=== PATIENT | male | born 1940 | race Caucasian/White ===

== ENCOUNTER 2016-09-24 15:34 | Inpatient (IN) | payer OTHER ==
--- NOTE | ~2016-09-24 | DS ---
Discharge Summary [facility] [address] [place]. [address] NAME: ALLA ESPARZA : 42 STATUS : DIS IN PAT#: [id number] AGE: 76 ADM/REG DATE : 09/24/16 MR#: [id number] REPORT SERV DATE: 10/03/16 DICTATED BY: ANOOP IBARRA DATE: 10/02/16 REPORT STATUS : Draft TRANSCRIBED BY: MODGera DATE: 10/02/16 ADMISSION DATE: 09/24/2016 DISCHARGE DATE: 10/02/2016 DISCHARGE DIAGNOSES: 1. Severe right lower extremity cellulitis with two superficial wounds on the leg that is slowly healing. 2. 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 3. Acute kidney injury, present on admission, resolved. 4. Chronic kidney disease, back at baseline with creatinine of 1.7. 5. History of congestive heart failure/ischemic cardiomyopathy with ejection fraction of 25% that has been compensated. 6. Bilateral lower extremity edema, resolved. 7. Left foot pain, possibly gout with elevated uric acid level. It was improved with colchicine. CONSULTANTS: 1. Nephrology. 2. Infectious Disease. 3. Vascular Surgery. HOSPITAL COURSE: This discharge summary covers services covered between 10/01/2016 through 10/02/2016. For details regarding the previous days of hospital stay, please refer to interim discharge summary by Dr. Pina. In summary, the patient was admitted with severe right lower extremity cellulitis that did not respond to outpatient therapy. The patient was admitted and initially started on Ancef which was later switched to cefepime after wound cultures came back positive for Serratia Pseudomonas and enterococcus. The patient has been on cefepime for five days and Dr. Dumas suggested discharging patient on p.o. Cipro. The patient also had duplex ultrasound study of the bilateral lower extremities for possible peripheral arterial disease, which was indeed positive. The patient was seen by Vascular Surgery who felt that the patient did not need any immediate surgical attention. The patient will simply be followed by Vascular Surgery as an outpatient. On the day of discharge, the patient was seen by Physical Therapy, and the patient did extremely well, ambulating the hallway. The patient is thus being discharged home with a Rollator walker for close outpatient followup. Total of 45 minutes spent in coordinating this patient's discharge today. JODY/MODL Anoop Ibarra MD Discharge Summary [address] [address] NAME: ALLA ESPARZA : 42 STATUS : DIS IN PAT#: [id number] AGE: 76 ADM/REG DATE : 09/24/16 MR#: [id number] REPORT SERV DATE: 10/03/16 DICTATED BY: ANOOP IBARRA DATE: 10/02/16 REPORT STATUS : Draft TRANSCRIBED BY: MODL DATE: 10/02/16 / [id number] CC: MD Alla Hinds M.D.
--- NOTE | ~2016-09-24 | IDS ---
Interim Discharge Summary [facility] [address] [facility] [place]. [address] NAME: ALLA ESPARZA : 42 STATUS : ADM IN PAT#: [id number] AGE: 76 ADM/REG DATE : 09/24/16 MR#: [id number] REPORT SERV DATE: 09/30/16 DICTATED BY: ALEX DOMINGUEZ DATE: 09/30/16 REPORT STATUS : Draft TRANSCRIBED BY: MODL DATE: 09/30/16 ADMISSION DATE: 09/24/2016 DISCHARGE DATE: INTERIM DISCHARGE SUMMARY. INFECTIOUS DISEASE: Dr. Massimo Dumas. NETWORK/TELECOM ENGINEER: Dr. Haider. Dates of service provided from 09/24/2016 to 09/30/2016. The patient's current medical problems are 1. Severe right lower extremity cellulitis with 2 superficial wounds on the leg with currently slowly improving. 2. Acute kidney injury present on admission, resolved. 3. Chronic kidney disease. Creatinine currently at the baseline. 4. History of congestive heart failure/ischemic cardiomyopathy/systolic congestive heart failure with ejection fraction 25% compensated. 5. Bilateral lower extremity edema resolved. 6. Left foot dorsal surface pain, possible gout with elevated uric acid level, improved with colchicine. 7. Possible peripheral arterial disease. Check bilateral arterial duplex ultrasound. CONSULTANTS ON THE CASE: Natural Sciences Manager, Dr. Haider and Infectious Disease, Dr. Dumas. HISTORY OF PRESENT ILLNESS: Briefly, this is a very pleasant 76-year-old male who was admitted by me as a direct transfer from Dr. Pichardo's office. He had severe right lower extremity cellulitis which did not respond to outpatient treatment as well as he had bilateral lower extremity edema in a significant amount as well as 2 superficial wounds on the right lower leg ache. For details, see history of present illness dictated by me on 09/24/2016. HOSPITAL COURSE: 1. Briefly, on admission the patient was in acute kidney injury and lucerne farmer was consulted especially in a situation when he has ischemic cardiomyopathy. His oral diuretics were on hold, and he was given intravenous diuretics. His bilateral lower extremity edema resolved and his kidney function came back to the baseline, today creatinine is 1.76. He was switched to torsemide 20 mg twice a day and lucerne farmer recommended the patient to continue torsemide on outpatient basis instead of his home diuretics as well as his lisinopril has been discontinued. His LISA inhibitor has been discontinued per lucerne farmer Dr. Haider. 2. Right lower extremity cellulitis with 2 superficial ulcers on the foot. Initially he was started on Ancef and then the wound culture grew polymicrobial bacteria which showed Serratia Pseudomonas and Enterococcus and Dr. Dumas switched this patient to cefepime. The patient responded to the intravenous antibiotics. Erythema has Interim Discharge Summary [address] [place]. [address] NAME: ALLA ESPARZA : 42 STATUS : ADM IN PAT#: [id number] AGE: 76 ADM/REG DATE : 09/24/16 MR#: [id number] REPORT SERV DATE: 09/30/16 DICTATED BY: ALEX DOMINGUEZ DATE: 09/30/16 REPORT STATUS : Draft TRANSCRIBED BY: SERGE DATE: 09/30/16 improved, but he still needs intravenous antibiotics for maybe 2 or [address] Dumas. He is managing his antibiotics and he will recommend when is the time to switch him to oral antibiotics. 3. Ischemic cardiomyopathy and history of coronary artery disease. He has been asymptomatic. 4. He developed also pain on the dorsal surface of the left foot yesterday but there was no any erythema. I suspect this is possibly gout. His uric acid level was checked yesterday, it was 11.5. I gave him one dose of colchicine yesterday according to his kidney function as well as I will give him one more dose today. It looks like it helped him. 5. Also his right leg pain has improved. There is a possibility of peripheral arterial disease. I ordered bilateral arterial duplex ultrasound on this patient. My partner will check results tomorrow; if any abnormality, they may need to ask vascular specialist to see him. Currently, the patient on Lipitor 40 mg a day; Coreg 25 p.o. b.i.d.; cefepime 1 g IV q.6 hours; vitamin D 1000 units daily; Benadryl 50 mg at bedtime; Colace 100 mg p.o. daily; Pepcid 20 mg b.i.d.; subcu heparin 5000 units q.8 hours; Demadex 20 mg p.o. b.i.d.; Aldactone 25 mg daily; vitamin B complex one tablet daily; and glucosamine chondroitin daily. MG/MODL Alex Dominguez M.D. / [id number] CC: Sydney Stover M.D. Rohit Gupta, M.D. Mark Anderson, M.D.
--- NOTE | ~2016-09-24 | CN ---
Consultation Report [facility] [address] [place]. [address] NAME: ALLA WEINBERG : 42 STATUS : ADM IN PAT#: [id number] AGE: 76 ADM/REG DATE : 09/24/16 MR#: [id number] REPORT SERV DATE: 09/25/16 DICTATED BY: LUCAS HAIDER DATE: 09/24/16 REPORT STATUS : Draft TRANSCRIBED BY: MODL DATE: 09/24/16 CONSULTATION DATE OF CONSULTATION: 09/24/2016 CONSULTING GROUP: [facility]. CHIEF COMPLAINT: Right lower extremity cellulitis and [id number] renal failure. HISTORY OF PRESENT ILLNESS: Mr. Weinberg is a 76-year-old, gentleman who was seen today at Dr. Pichardo's office and noted to have significant right lower extremity cellulitis, redness, and ulcerations that may have been progressing over a week. He required inpatient management for IV antibiotics and was transferred to [facility] directly on the hospitalist service. Dr. Pina asked me to see the patient for acute-on chronic renal failure. I reviewed the patient's electronic medical chart. It seems that back in 2007 to 2015, his baseline creatinine is anywhere between 1.0 and 1.5. He has never seen a professor of geography in the past. As recent as October 2015, his baseline creatinine is 1.2. Mr. Weinberg has an eccentric and odd affect and personality. He is a retired retailer. He is in some mild pain from the leg cellulitis. He understands his need for hospitalization and is appropriate historian. He is bed rest right now and waiting to have his ultrasound of lower extremities. PAST MEDICAL HISTORY: 1. Vitamin D deficiency. 2. Allergic rhinitis. 3. GERD. 4. Ischemic cardiomyopathy secondary to coronary artery disease. 5. Osteoarthritis. FAMILY HISTORY: Father is an alcoholic. SOCIAL HISTORY: He lives in apartment alone. Quit smoking in 2007. He denies any alcohol use. He has an eccentric personality. 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 REVIEW OF SYSTEMS: Positive cough, shortness of breath, painful right leg cellulitis, lower extremity edema. He denies fevers. All other review of systems also negative at this time. OBJECTIVE/PHYSICAL EXAMINATION: VITALS SIGNS: Temperature 97,4, blood pressure 119/56, pulse 66, respiration 18. His intake is 240. Output not recorded yet. GENERAL: He is loquacious personality in mild pain distress. EYES: Extraocular is intact. No conjunctivitis. Consultation Report [address] [place]. [address] NAME: ALLA WEINBERG : 42 STATUS : ADM IN [facility]#: [id number] AGE: 76 ADM/REG DATE : 09/24/16 MR#: [id number] REPORT SERV DATE: 09/25/16 DICTATED BY: LUCAS HAIDER DATE: 09/24/16 REPORT STATUS : Draft TRANSCRIBED BY: SERGE DATE: 09/24/16 ENT: Dry oropharynx. No facial droop. LYMPH: No supraclavicular cervical lymphadenopathy. SKIN: He has a red ulcerated right lower extremity cellulitis, tender and warm to touch. He has redness of complexion. HEART: S1, S2. Regular. Positive edema. LUNGS: Clear to auscultation anteriorly. Few crackles. ABDOMEN: Soft, distended decreased bowel sounds. EXTREMITIES AND PSYCH: Right lower extremity cellulitis alert orient x3. Good historian. Odd affect. Right wrist brace. LABS: Chest x-ray is pending. We are going to have a lower extremity duplex later this evening. Sodium 136, potassium 5.5, chloride 100, bicarb 29, BUN 71, creatinine 2.54, glucose 106, calcium 8.8. White count 8.8, hemoglobin 11.1, hematocrit 33.2, and platelets 133. ASSESSMENT: Mr. Weinberg is a 76-year-old gentleman, with acute right lower extremity cellulitis and need for IV antibiotics, [id number] renal failure, coronary artery disease, and osteoarthritis. 1. Renal. His creatinine is 2.5, baseline creatinine 1.2-1.6. PLAN: 1. He is okay for IV Ancef. 2. Check urinalysis spot urine urea creatinine protein. 3. Check a lower extremity duplex tonight. 4. LISA inhibitor, metolazone, spironolactone, a nd Lasix have been held for now. 5. The patient may require IV diuretics and/or IV fluids depending on his urine electrolytes. It is difficult to wrap legs due to the fact that he has moderate cellulitis on his right lower extremity. 6. Strict I's and O's. NEGRO/MODL Lucas Haider M.D. / [id number] CC: Sydney Stover M.D.
--- NOTE | ~2016-09-24 | CN ---
Consultation Report [facility] [address] [facility] [place]. [address] NAME: ALLA ESPARZA : 42 STATUS : ADM IN PAT#: [id number] AGE: 76 ADM/REG DATE : 09/24/16 MR#: [id number] REPORT SERV DATE: 09/25/16 DICTATED BY: SHADE JOHNSON DATE: 09/25/16 REPORT STATUS : Draft TRANSCRIBED BY: MODGera DATE: 09/25/16 INFECTIOUS DISEASE CONSULT DATE OF CONSULTATION: REASON FOR REFERRAL: Evaluation and treatment of infection of leg. HISTORY OF PRESENT ILLNESS: The patient is a 76-year-old male. He has a history of coronary artery disease, ischemic cardiomyopathy. He has had arrhythmias in the past including atrial fibrillation, and has a pacemaker. He has a distant history of smoking, and he has recent worsening swelling in his legs that seems to have occurred over the last probably six to eight months, but marked swelling in the last month. He developed redness, particularly on the right. There was no abrupt onset. His gradual warmth and redness are not associated with pain. There are some blisters on it, but initially no wounds or trauma. He was treated as an outpatient with cefadroxil, but has continued to have difficulty with swelling and has really done nothing on his own such as elevation or compression devices to get the swelling down. He was admitted on the 09/24/2016 and has been started on Ancef. He has no temperature. White blood cell count is normal. Blood cultures are taken and thus far those are negative. He denies any trauma or unusual environmental exposures with his leg. He is obese, has increasing difficulty getting around and keeping his leg elevated. PAST MEDICAL HISTORY: Otherwise unremarkable. MEDICATIONS: Cefadroxil before he came in , Ancef while he is here. ALLERGIES: HE HAS NO KNOWN ANTIMICROBIAL ALLERGIES. 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 He is still , but lives alone and does not want to have anything to do with his family. He stops smoking number of years ago and has no history of alcohol or substance abuse. FAMILY HISTORY: Noncontributory. PHYSICAL EXAMINATION: GENERAL: Nontoxic adult male, in no acute distress. Alert and oriented x3. VITAL SIGNS: Temperature here has been normal, currently 98.5 with a pulse of 76, respirations 12, blood pressure 105/51, no weight has been recorded. HEENT: Sclerae clear. No oral lesions. LUNGS: Clear. HEART: Regular rate and rhythm. ABDOMEN: Obese, soft, nontender. Positive bowel sounds. EXTREMITIES: Both lower extremities are markedly swollen consistent with venous stasis. The right is erythematous, but only slightly warm. There is some weeping of clear fluid, but no Consultation Report [address] [place]. [address] NAME: ALLA ESPARZA : 42 STATUS : ADM IN PAT#: [id number] AGE: 76 ADM/REG DATE : 09/24/16 MR#: [id number] REPORT SERV DATE: 09/25/16 DICTATED BY: SHADE JOHNSON DATE: 09/25/16 REPORT STATUS : Draft TRANSCRIBED BY: SERGE DATE: 09/25/16 distinct wound. No ulcerations at this point. LABORATORY DATA: White count 8.8, when he came in, 6.9 today with hematocrit 30.3, platelets 210. BUN and creatinine 71 and 2.31, it was 2.54 when he came in. IMPRESSION: Bilateral severe venous stasis in both lower extremities. The right, I feel does have mild infection but the primary problem here is actually he has edema, and I think infection is playing a limited role at best, if indeed infection is there, it is most likely strep. I do not see anything that would suggest atypical agents or staph at this point. RECOMMENDATIONS: 1. Ancef, I think is reasonable for now. Increase in 2 g q.12 hours. 2. The most important thing now to get this under control is to get the swelling down and strict bedrest is of extreme importance to do that. This has been explained to the patient and he understands that he needs to have keep the leg elevated in bed 23-1/2 out of every 24 hours. I will follow the patient with you. Once he is better, we will have to talk about some type of compression device that he would be able to get in and out of himself since he lives alone. I appreciate very much your consulting on this patient. FAHEEM Shade Johnson M.D. / [id number] CC: Sydney Stover M.D.
--- NOTE | ~2016-09-24 | HP ---
History And Physical [facility] [id number] [place]. [address] NAME: ALLA ESPARZA : 42 STATUS : ADM IN PAT#: [id number] AGE: 76 ADM/REG DATE : 09/24/16 MR#: [id number] REPORT SERV DATE: 09/24/16 DICTATED BY: ALEX DOMINGUEZ DATE: 09/24/16 REPORT STATUS : Draft TRANSCRIBED BY: MODL DATE: 09/24/16 DATE OF ADMISSION: 09/24/2016 HISTORY OF PRESENT ILLNESS: The patient is very 76-year-old man, who was transferred from Dr. Pichardo's office as a direct admission. The patient had diagnosis of cellulitis, which was diagnosed one month ago. He had a blister on his right lower extremity according to Dr. Pichardo, which was treated with Duricef for the last 10 days and there are also two ulcers on his right lower extremity, but the leg is still red and these two ulcers developed lately and the patient's both legs are swollen, but the right lower extremity is also erythematosus. The patient reported that lately he became swollen. He denies any chest pain. He said that on exertion he may have some shortness of breath. He denies any fever. No cough. No chest pain. No abdominal pain. REVIEW OF SYSTEMS: All 14 systems are reviewed and are negative except what was stated in history of present illness. PAST MEDICAL HISTORY: Past medical history was collected from the patient as well as from Dr. Pichardo. The patient has history of ischemic cardiomyopathy, his ejection fraction is less than 30%. He had a history of heart attack before. His microbiology lab technician is Dr. Solis. He had a history of pacemaker placement done by Dr. Abrams. Also history of atrial fibrillation in the past. According to records here questionable history of COPD, the patient quit smoking long time ago. He denies any history of diabetes. PAST SURGICAL HISTORY: Coronary artery bypass grafting done by Dr. Painter in the past as well as history of umbilical hernia surgery and a pacemaker placement. SOCIAL HISTORY: He has and three children, but he lives alone by himself. There is a remote history of smoking. No alcohol. No recreational drug use. FAMILY HISTORY: Mother had a history of congestive heart failure and heart problems as well as she used to use alcohol as well as the father had the same problems. ALLERGIES: NO KNOWN DRUG ALLERGIES. HOME MEDICATIONS: Lipitor 40 mg a day; vitamin D one tablet daily; carvedilol 25 p.o. b.i.d.; vitamin D3 of 1000 units daily; Benadryl 50 mg daily; Colace 100 mg daily; Pepcid 20 mg b.i.d.; Giana 180 at bedtime; Lasix 40 mg b.i.d.; glucosamine one tablet daily; lisinopril 10 mg a day; metolazone 2.5 Friday, Friday, Friday; multivitamin daily; senna one tablet at bedtime; spironolactone 25 mg daily; tramadol with acetaminophen one tablet p.o. q.6h p.r.n. for pain; Ambien 10 mg as needed for insomnia. PHYSICAL EXAMINATION: GENERAL: Obese male, not in acute distress, resting quietly. VITAL SIGNS: Blood pressure 119/56, oxygen saturation 97% on room air, respiratory rate 18, heart rate 66, temperature 97.4. History And Physical [address] [address] NAME: ALLA ESPARZA : 42 STATUS : ADM IN [facility]#: [id number] AGE: 76 ADM/REG DATE : 09/24/16 MR#: [id number] REPORT SERV DATE: 09/24/16 DICTATED BY: ALEX DOMINGUEZ DATE: 09/24/16 REPORT STATUS : Draft TRANSCRIBED BY: SERGE DATE: 09/24/16 HEENT: Head atraumatic, normocephalic. Conjunctivae clear. Pupils are equal and reactive to light and accommodation. Extraocular muscles are intact. NECK: Supple. Trachea is midline. No supraclavicular or cervical lymphadenopathy. LUNGS: Diminished breath sounds bilaterally. Decreased respiratory effort. CARDIOVASCULAR SYSTEM: Regular rate and rhythm. Point of maximal impulse not displaced. ABDOMEN: Soft, obese, nontender. Mildly distended. Positive normoactive bowel sounds. EXTREMITIES: No clubbing, cyanosis, 2+ edema. Also, there is erythema on the right lower extremity and there are two ulcers on the lower leg, one on the side of the leg and the other one on the posterior aspect of the lower leg, but they looks superficial. The temperature of the leg is not elevated. PSYCHIATRIC: Normal mood and affect. NEUROLOGIC: Awake, alert, and oriented to time, place, and person. Muscle strength 5/5 bilaterally on upper and lower extremities. LABORATORY RESULTS: Sodium 136, potassium 5.5, chloride 100, carbon dioxide 29, BUN 71, creatinine 2.54, blood sugar 106. White count 8.8, hemoglobin 11.1, hematocrit 33.2, MCV 100.9, and a platelet count 133. ASSESSMENT AND PLAN: This is a very 76-year-old male with a history of congestive heart failure, ischemic cardiomyopathy, history of coronary artery disease, chronic kidney disease, obesity presented with: 1. Right lower extremity cellulitis. 2. Bilateral lower extremity edema. 3. Acute kidney injury on chronic kidney disease. 4. Ischemic cardiomyopathy with ejection fraction less than 30%. 5. Mild hyperkalemia. We will admit the patient to telemetry bed for his acute kidney injury on chronic kidney disease. This is most likely prerenal azotemia. We will hold his diuretics and recheck his kidney function. 6. Bilateral lower extremity edema. I think this is combination of acute kidney injury with ischemic cardiomyopathy. I will ask ceramic artist to see this patient regarding recommendations of diuretics. 7. Right lower extremity cellulitis. We will check serum procalcitonin level as well as we will check blood cultures and wound cultures. We will consult wound care and after cultures will be done we will start the patient on cefazolin, it will be dosed according to creatinine level. 8. Mild hyperkalemia. We will hold his lisinopril and we will give him one dose of Kayexalate. In the same time, we will check his bilateral lower extremity ultrasound to rule out deep vein thrombosis on this patient and we will put him for now on DVT prophylaxis. He does not have shortness of breath and he has normal oxygenation on room air. We will monitor him closely. I will follow up on this patient starting tomorrow morning. History And Physical [address] [place]. [address] NAME: ALLA ESPARZA : 42 STATUS : ADM IN PAT#: [id number] AGE: 76 ADM/REG DATE : 09/24/16 MR#: [id number] REPORT SERV DATE: 09/24/16 DICTATED BY: ALEX DOMINGUEZ DATE: 09/24/16 REPORT STATUS : Draft TRANSCRIBED BY: MODL DATE: 09/24/16 MG/MODL Alex Dominguez M.D. / [id number] CC: Sydney Stover M.D.
[~2016-09-24 15:34] MED LIST: COREG12 PO; FISH-EPA1000 MG PO; GLUCCHONDR PO; L40 PO; LAM250 PO; MULTIPLE VIT PO; PEP20 PO; PRIN10 PO; SENTAB PO; SPIRO25 PO; VYTORIN 10/40 T1 TAB PO; [UNRECOGNIZED DRUG - REMARK] OR
[2016-09-24] MEDS ORDERED: LIPITOR40 PO (16:20)
[2016-09-24] MEDS ORDERED: SPIRO25 PO (16:20)
[2016-09-24] MEDS ORDERED: COREG25 PO (16:20)
[2016-09-24] MEDS ORDERED: PRIN10 PO (16:20)
[2016-09-24] MEDS ORDERED: ULTRACET PO (16:20)
[2016-09-24] MEDS ORDERED: BEN25 PO (16:21)
[2016-09-24] MEDS ORDERED: ZAROX2.5B PO (16:21)
[2016-09-24] MEDS ORDERED: L40 PO (16:21)
[2016-09-24 16:25] LABS: BASOPHILS 0.2 %; BASOPHILS ABSOLUTE 0.02 10/3/uL (0.0-0.16); EOSINOPHILS 0.3 %; EOSINOPHILS ABSOLUTE 0.03 10/3/uL (0.0-0.53); HEMATOCRIT 33.2 % (40.0-51.0); HEMOGLOBIN 11.1 g/dL (13.6-17.8); IMMATURE GRANULOCYTES 0.2 %; IMMATURE GRANULOCYTES ABSOLUTE 0.02 10/3/uL (0.0-0.11); LYMPHOCYTES 12.5 %; MANUAL DIFF NO %; MEAN CORPUS HGB CONC 33.4 g/dL (32.0-36.0); MEAN CORPUSCULAR HEMOGLOB 33.7 pg (26.0-34.0); MEAN CORPUSCULAR VOLUME 100.9 fL (80-100); MEAN PLATELET VOLUME 13.1 fL (9.2-13.0); MONOCYTES 5.9 %; MONOCYTES ABSOLUTE 0.52 10/3/uL (0.21-1.20); NEUTROPHILS 80.9 %; NEUTROPHILS ABSOLUTE 7.11 10/3/uL (2.02-8.40); PLATELET COUNT 133 10/3/uL (150-400); RBC DISTRIBUTION WIDTH 13.4 % (12.0-16.0); RED CELL COUNT 3.29 10/6/uL (4.7-6.1); WHITE BLOOD CELLS 8.8 10/3/uL (4.5-10.5)
[2016-09-24] MEDS ORDERED: PEP20 PO (16:25)
[2016-09-24] MEDS ORDERED: DSS PO (16:25)
[2016-09-24] MEDS ORDERED: SENTAB PO (16:26)
[2016-09-24] MEDS ORDERED: ALLEGRA180 PO (16:26)
[2016-09-24] MEDS ORDERED: SUPER B COMP PO (16:26)
[2016-09-24] MEDS ORDERED: THERGRANM PO (16:26)
[2016-09-24] MEDS ORDERED: VITAMIN D31000 UNIT PO (16:26)
[2016-09-24] MEDS ORDERED: OSTEO BI-FLEX1 EACH PO (16:26)
[2016-09-24] MEDS ORDERED: AMB10 PO (16:26)
[2016-09-24 16:35] LABS: CALCIUM, SERUM 8.8 MG/DL (8.5-10.4); CHLORIDE, SERUM 100 MMOL/L (96-112); CO2 (CARBON DIOXIDE) 29 MMOL/L (24-34); GFR AFRICAN AMERICAN 28 ML/MIN (>=60); GFR NON AFRICAN AMERICAN 24 ML/MIN (>=60); GLUCOSE, SERUM 106 MG/DL (60-99); SODIUM, SERUM 136 MMOL/L (135-148)
[2016-09-24 16:36] LABS: BUN (BLOOD UREA NITROGEN) 71 MG/DL (6-23); CREATININE 2.54 MG/DL (0.70-1.30); POTASSIUM, SERUM 5.5 MMOL/L (3.5-5.3)
[2016-09-24 19:15] LABS: TROPONIN I 0.03 NG/ML (<0.05)
[2016-09-24 20:20] LABS: WBC (NOT ORDERED) (RFLEX) 0 (0-5)
[2016-09-24 20:28] LABS: PROCALCITONIN 0.32 ng/mL (<0.5)
[2016-09-24 21:47] LABS: CREATININE, URINE 46.7 MG/DL
[2016-09-24 22:10] LABS: ASCORBIC ACID (UR NOT ORDER) NEG (NEG); BILIRUBIN, URINE NEGATIVE (NEG); KETONE, URINE NEGATIVE (NEG); LEUKOCYTE ESTERASE(NOT OR NEG (NEG)
[2016-09-25 05:53] LABS: BASOPHILS 0.3 %; BASOPHILS ABSOLUTE 0.02 10/3/uL (0.0-0.16); EOSINOPHILS 0.9 %; EOSINOPHILS ABSOLUTE 0.06 10/3/uL (0.0-0.53); HEMATOCRIT 30.3 % (40.0-51.0); HEMOGLOBIN 10.3 g/dL (13.6-17.8); IMMATURE GRANULOCYTES 0.3 %; IMMATURE GRANULOCYTES ABSOLUTE 0.02 10/3/uL (0.0-0.11); LYMPHOCYTES 9.2 %; LYMPHOCYTES ABSOLUTE 0.63 10/3/uL (0.67-4.30); MEAN CORPUSCULAR HEMOGLOB 34.6 pg (26.0-34.0); MEAN CORPUSCULAR VOLUME 101.7 fL (80-100); MEAN PLATELET VOLUME 12.5 fL (9.2-13.0); MONOCYTES 17.6 %; MONOCYTES ABSOLUTE 1.21 10/3/uL (0.21-1.20); NEUTROPHILS 71.7 %; NEUTROPHILS ABSOLUTE 4.94 10/3/uL (2.02-8.40); PLATELET COUNT 120 10/3/uL (150-400); RBC DISTRIBUTION WIDTH 13.4 % (12.0-16.0); RED CELL COUNT 2.98 10/6/uL (4.7-6.1); WHITE BLOOD CELLS 6.9 10/3/uL (4.5-10.5)
[2016-09-25 05:56] LABS: MANUAL DIFF NO %
[2016-09-25 06:17] LABS: BUN (BLOOD UREA NITROGEN) 71 MG/DL (6-23); CALCIUM, SERUM 8.2 MG/DL (8.5-10.4); CHLORIDE, SERUM 100 MMOL/L (96-112); CO2 (CARBON DIOXIDE) 27 MMOL/L (24-34); CREATININE 2.31 MG/DL (0.70-1.30); GFR AFRICAN AMERICAN 31 ML/MIN (>=60); GFR NON AFRICAN AMERICAN 27 ML/MIN (>=60); GLUCOSE, SERUM 112 MG/DL (60-99); POTASSIUM, SERUM 4.5 MMOL/L (3.5-5.3); SODIUM, SERUM 137 MMOL/L (135-148); TROPONIN I 0.03 NG/ML (<0.05)
[2016-09-25 14:27] LABS: T PROTEIN (ELECT)(NOT OR 5.8 G/DL (6.0-8.5)
[2016-09-26 05:34] LABS: BASOPHILS 0.3 %; BASOPHILS ABSOLUTE 0.02 10/3/uL (0.0-0.16); EOSINOPHILS 1.1 %; EOSINOPHILS ABSOLUTE 0.08 10/3/uL (0.0-0.53); HEMATOCRIT 30.9 % (40.0-51.0); HEMOGLOBIN 10.5 g/dL (13.6-17.8); IMMATURE GRANULOCYTES 0.3 %; IMMATURE GRANULOCYTES ABSOLUTE 0.02 10/3/uL (0.0-0.11); LYMPHOCYTES 10.3 %; LYMPHOCYTES ABSOLUTE 0.76 10/3/uL (0.67-4.30); MEAN CORPUSCULAR HEMOGLOB 34.3 pg (26.0-34.0); MEAN PLATELET VOLUME 12.2 fL (9.2-13.0); MONOCYTES 15.8 %; MONOCYTES ABSOLUTE 1.17 10/3/uL (0.21-1.20); NEUTROPHILS 72.2 %; NEUTROPHILS ABSOLUTE 5.35 10/3/uL (2.02-8.40); PLATELET COUNT 135 10/3/uL (150-400); RBC DISTRIBUTION WIDTH 13.3 % (12.0-16.0); RED CELL COUNT 3.06 10/6/uL (4.7-6.1); WHITE BLOOD CELLS 7.4 10/3/uL (4.5-10.5)
[2016-09-26 05:38] LABS: MANUAL DIFF NO %
[2016-09-26 05:53] LABS: CALCIUM, SERUM 8.4 MG/DL (8.5-10.4); CHLORIDE, SERUM 99 MMOL/L (96-112); CO2 (CARBON DIOXIDE) 27 MMOL/L (24-34); CREATININE 1.96 MG/DL (0.70-1.30); GFR AFRICAN AMERICAN 38 ML/MIN (>=60); GFR NON AFRICAN AMERICAN 33 ML/MIN (>=60); GLUCOSE, SERUM 95 MG/DL (60-99); POTASSIUM, SERUM 3.7 MMOL/L (3.5-5.3); SGOT(AST) 24 U/L (5-40); SGPT(ALT) 25 U/L (5-65); SODIUM, SERUM 137 MMOL/L (135-148); TOTAL BILIRUBIN 0.9 MG/DL (0-1.2); TOTAL PROTEIN 5.8 G/DL (6.0-8.5)
[2016-09-26 05:59] LABS: ALBUMIN 2.9 G/DL (3.5-5.0); ALKALINE PHOSPHATASE 117 U/L (45-117); BUN (BLOOD UREA NITROGEN) 66 MG/DL (6-23); GLOBULIN 2.9 G/DL (2.5-4.1)
[2016-09-26 10:21] LABS: A/G 1.34 RATIO (0.9-2.10); ALB RELATIVE % 57.3 % (60.0-89.0); ALBUMIN (ELECTRO) 3.32 GM/DL (3.2-5.5); ALPHA 1 (ELECTRO) 0.32 GM/DL (0.1-0.4); ALPHA 1 RELAT % (NOT ORD) 5.6 % (1.0-4.0); ALPHA 2 (ELECTRO) 0.75 GM/DL (0.5-1.10); BETA GLOBULIN (SPE) 0.69 GM/DL (0.60-1.30); BETA RELATIVE % 11.9 % (9.0-22.0); GAMMA GLOBULIN (SPE) 0.71 G/DL (0.70-1.60); GAMMA RELAT % 12.2 % (6.0-22.0)
[2016-09-27 09:02] LABS: BASOPHILS 0.1 %; BASOPHILS ABSOLUTE 0.01 10/3/uL (0.0-0.16); EOSINOPHILS 0.6 %; EOSINOPHILS ABSOLUTE 0.05 10/3/uL (0.0-0.53); HEMATOCRIT 32.2 % (40.0-51.0); IMMATURE GRANULOCYTES 0.2 %; IMMATURE GRANULOCYTES ABSOLUTE 0.02 10/3/uL (0.0-0.11); LYMPHOCYTES 13.9 %; LYMPHOCYTES ABSOLUTE 1.11 10/3/uL (0.67-4.30); MEAN CORPUS HGB CONC 34.2 g/dL (32.0-36.0); MEAN CORPUSCULAR HEMOGLOB 34.5 pg (26.0-34.0); MEAN CORPUSCULAR VOLUME 100.9 fL (80-100); MEAN PLATELET VOLUME 11.8 fL (9.2-13.0); MONOCYTES 6.6 %; MONOCYTES ABSOLUTE 0.53 10/3/uL (0.21-1.20); NEUTROPHILS 78.6 %; NEUTROPHILS ABSOLUTE 6.29 10/3/uL (2.02-8.40); PLATELET COUNT 165 10/3/uL (150-400); RBC DISTRIBUTION WIDTH 13.4 % (12.0-16.0); RED CELL COUNT 3.19 10/6/uL (4.7-6.1)
[2016-09-27 09:06] LABS: MANUAL DIFF NO %
[2016-09-27 09:13] LABS: ALBUMIN 2.9 G/DL (3.5-5.0); CALCIUM, SERUM 8.7 MG/DL (8.5-10.4); CHLORIDE, SERUM 98 MMOL/L (96-112); CO2 (CARBON DIOXIDE) 30 MMOL/L (24-34); CREATININE 1.88 MG/DL (0.70-1.30); GFR AFRICAN AMERICAN 40 ML/MIN (>=60); GFR NON AFRICAN AMERICAN 34 ML/MIN (>=60); PHOSPHORUS, SERUM 3.3 MG/DL (2.5-4.5); POTASSIUM, SERUM 3.7 MMOL/L (3.5-5.3); SODIUM, SERUM 141 MMOL/L (135-148)
[2016-09-27 09:14] LABS: BUN (BLOOD UREA NITROGEN) 58 MG/DL (6-23); GLUCOSE, SERUM 124 MG/DL (60-99)
[2016-09-28 07:27] LABS: BASOPHILS 0.1 %; BASOPHILS ABSOLUTE 0.01 10/3/uL (0.0-0.16); EOSINOPHILS 1.3 %; EOSINOPHILS ABSOLUTE 0.11 10/3/uL (0.0-0.53); HEMATOCRIT 32.4 % (40.0-51.0); HEMOGLOBIN 11.1 g/dL (13.6-17.8); IMMATURE GRANULOCYTES 0.2 %; IMMATURE GRANULOCYTES ABSOLUTE 0.02 10/3/uL (0.0-0.11); LYMPHOCYTES ABSOLUTE 0.79 10/3/uL (0.67-4.30); MEAN CORPUS HGB CONC 34.3 g/dL (32.0-36.0); MEAN CORPUSCULAR VOLUME 102.2 fL (80-100); MEAN PLATELET VOLUME 11.5 fL (9.2-13.0); MONOCYTES 13.5 %; MONOCYTES ABSOLUTE 1.18 10/3/uL (0.21-1.20); NEUTROPHILS 75.9 %; NEUTROPHILS ABSOLUTE 6.65 10/3/uL (2.02-8.40); PLATELET COUNT 159 10/3/uL (150-400); RBC DISTRIBUTION WIDTH 13.4 % (12.0-16.0); RED CELL COUNT 3.17 10/6/uL (4.7-6.1); WHITE BLOOD CELLS 8.8 10/3/uL (4.5-10.5)
[2016-09-28 07:28] LABS: MANUAL DIFF NO %
[2016-09-28 07:42] LABS: ALBUMIN 2.9 G/DL (3.5-5.0); CALCIUM, SERUM 8.5 MG/DL (8.5-10.4); CHLORIDE, SERUM 98 MMOL/L (96-112); CO2 (CARBON DIOXIDE) 31 MMOL/L (24-34); CREATININE 1.71 MG/DL (0.70-1.30); GFR AFRICAN AMERICAN 45 ML/MIN (>=60); GFR NON AFRICAN AMERICAN 39 ML/MIN (>=60); GLUCOSE, SERUM 108 MG/DL (60-99); PHOSPHORUS, SERUM 2.7 MG/DL (2.5-4.5); POTASSIUM, SERUM 4.1 MMOL/L (3.5-5.3); SODIUM, SERUM 140 MMOL/L (135-148)
[2016-09-28 07:45] LABS: BUN (BLOOD UREA NITROGEN) 53 MG/DL (6-23)
[2016-09-29 09:24] LABS: BASOPHILS 0.2 %; BASOPHILS ABSOLUTE 0.02 10/3/uL (0.0-0.16); EOSINOPHILS 1.2 %; EOSINOPHILS ABSOLUTE 0.13 10/3/uL (0.0-0.53); HEMATOCRIT 33.5 % (40.0-51.0); HEMOGLOBIN 11.1 g/dL (13.6-17.8); IMMATURE GRANULOCYTES 0.2 %; IMMATURE GRANULOCYTES ABSOLUTE 0.02 10/3/uL (0.0-0.11); LYMPHOCYTES 12.6 %; LYMPHOCYTES ABSOLUTE 1.33 10/3/uL (0.67-4.30); MANUAL DIFF NO %; MEAN CORPUS HGB CONC 33.1 g/dL (32.0-36.0); MEAN CORPUSCULAR HEMOGLOB 33.6 pg (26.0-34.0); MEAN CORPUSCULAR VOLUME 101.5 fL (80-100); MEAN PLATELET VOLUME 11.8 fL (9.2-13.0); MONOCYTES 4.3 %; MONOCYTES ABSOLUTE 0.45 10/3/uL (0.21-1.20); NEUTROPHILS 81.5 %; NEUTROPHILS ABSOLUTE 8.62 10/3/uL (2.02-8.40); PLATELET COUNT 180 10/3/uL (150-400); RBC DISTRIBUTION WIDTH 13.4 % (12.0-16.0); WHITE BLOOD CELLS 10.6 10/3/uL (4.5-10.5)
[2016-09-29 09:36] LABS: BUN (BLOOD UREA NITROGEN) 51 MG/DL (6-23); CALCIUM, SERUM 8.9 MG/DL (8.5-10.4); CHLORIDE, SERUM 97 MMOL/L (96-112); CO2 (CARBON DIOXIDE) 34 MMOL/L (24-34); CREATININE 1.66 MG/DL (0.70-1.30); GFR AFRICAN AMERICAN 46 ML/MIN (>=60); GFR NON AFRICAN AMERICAN 40 ML/MIN (>=60); GLUCOSE, SERUM 116 MG/DL (60-99); SODIUM, SERUM 140 MMOL/L (135-148)
[2016-09-29 15:03] LABS: FOLATE 74.9 NG/ML (>5.2)
[2016-09-30 06:34] LABS: BASOPHILS 0.2 %; BASOPHILS ABSOLUTE 0.02 10/3/uL (0.0-0.16); EOSINOPHILS 1.5 %; EOSINOPHILS ABSOLUTE 0.13 10/3/uL (0.0-0.53); HEMATOCRIT 34.8 % (40.0-51.0); HEMOGLOBIN 11.6 g/dL (13.6-17.8); IMMATURE GRANULOCYTES 0.2 %; IMMATURE GRANULOCYTES ABSOLUTE 0.02 10/3/uL (0.0-0.11); LYMPHOCYTES 12.7 %; LYMPHOCYTES ABSOLUTE 1.14 10/3/uL (0.67-4.30); MEAN CORPUS HGB CONC 33.3 g/dL (32.0-36.0); MEAN CORPUSCULAR HEMOGLOB 34.1 pg (26.0-34.0); MEAN CORPUSCULAR VOLUME 102.4 fL (80-100); MEAN PLATELET VOLUME 11.8 fL (9.2-13.0); MONOCYTES 7.9 %; MONOCYTES ABSOLUTE 0.71 10/3/uL (0.21-1.20); NEUTROPHILS 77.5 %; NEUTROPHILS ABSOLUTE 6.93 10/3/uL (2.02-8.40); PLATELET COUNT 168 10/3/uL (150-400); RBC DISTRIBUTION WIDTH 13.2 % (12.0-16.0)
[2016-09-30 06:36] LABS: MANUAL DIFF NO %
[2016-09-30 06:42] LABS: CALCIUM, SERUM 8.8 MG/DL (8.5-10.4); CHLORIDE, SERUM 93 MMOL/L (96-112); CO2 (CARBON DIOXIDE) 33 MMOL/L (24-34); CREATININE 1.76 MG/DL (0.70-1.30); GFR AFRICAN AMERICAN 43 ML/MIN (>=60); GFR NON AFRICAN AMERICAN 37 ML/MIN (>=60); GLUCOSE, SERUM 115 MG/DL (60-99); POTASSIUM, SERUM 4.1 MMOL/L (3.5-5.3); SODIUM, SERUM 138 MMOL/L (135-148)
[2016-09-30 06:43] LABS: BUN (BLOOD UREA NITROGEN) 55 MG/DL (6-23)
[2016-10-01 06:02] LABS: BASOPHILS 0.4 %; BASOPHILS ABSOLUTE 0.03 10/3/uL (0.0-0.16); EOSINOPHILS 1.5 %; EOSINOPHILS ABSOLUTE 0.13 10/3/uL (0.0-0.53); HEMATOCRIT 33.2 % (40.0-51.0); HEMOGLOBIN 11.3 g/dL (13.6-17.8); IMMATURE GRANULOCYTES 0.4 %; IMMATURE GRANULOCYTES ABSOLUTE 0.03 10/3/uL (0.0-0.11); LYMPHOCYTES 11.6 %; LYMPHOCYTES ABSOLUTE 0.98 10/3/uL (0.67-4.30); MANUAL DIFF NO %; MEAN CORPUSCULAR HEMOGLOB 34.2 pg (26.0-34.0); MEAN CORPUSCULAR VOLUME 100.6 fL (80-100); MEAN PLATELET VOLUME 11.9 fL (9.2-13.0); MONOCYTES 10.5 %; MONOCYTES ABSOLUTE 0.89 10/3/uL (0.21-1.20); NEUTROPHILS 75.6 %; NEUTROPHILS ABSOLUTE 6.39 10/3/uL (2.02-8.40); PLATELET COUNT 176 10/3/uL (150-400); RBC DISTRIBUTION WIDTH 12.9 % (12.0-16.0); WHITE BLOOD CELLS 8.5 10/3/uL (4.5-10.5)
[2016-10-01 06:13] LABS: CALCIUM, SERUM 8.8 MG/DL (8.5-10.4); CHLORIDE, SERUM 97 MMOL/L (96-112); CO2 (CARBON DIOXIDE) 31 MMOL/L (24-34); CREATININE 1.73 MG/DL (0.70-1.30); GFR AFRICAN AMERICAN 44 ML/MIN (>=60); GFR NON AFRICAN AMERICAN 38 ML/MIN (>=60); GLUCOSE, SERUM 120 MG/DL (60-99); POTASSIUM, SERUM 3.7 MMOL/L (3.5-5.3); SODIUM, SERUM 136 MMOL/L (135-148)
[2016-10-01 06:14] LABS: BUN (BLOOD UREA NITROGEN) 61 MG/DL (6-23)
[2016-10-02] MEDS ORDERED: CIP5 PO (15:58)
[2016-10-02] MEDS ORDERED: FLORASTOR250 MG PO (15:59)
[2016-12-14] MEDS ORDERED: L20 PO (09:43)
[2016-12-14] MEDS ORDERED: FISH-EPA1000 MG PO (09:44)
== END 2016-10-02 16:54 | disposition home health service (06) | DRG 603 ==
LOC: 4SO 15:34
PROVIDERS: Hospitalist; Internal Medicine Nephrology; Nurse Practitioner
DX: L03.115 Cellulitis of right lower limb (principal); N17.9 Acute kidney failure, unspecified; I50.22 Chronic systolic (congestive) heart failure; E11.22 Type 2 diabetes mellitus with diabetic chronic kidney disease; L97.811 Non-pressure chronic ulcer of other part of right lower leg limited to breakdown of skin; R60.0 Localized edema; N18.9 Chronic kidney disease, unspecified; E87.5 Hyperkalemia; I25.5 Ischemic cardiomyopathy; E11.622 Type 2 diabetes mellitus with other skin ulcer; K21.9 Gastro-esophageal reflux disease without esophagitis; I25.10 Atherosclerotic heart disease of native coronary artery without angina pectoris; E55.9 Vitamin D deficiency, unspecified; J30.9 Allergic rhinitis, unspecified; Z87.891 Personal history of nicotine dependence; M19.90 Unspecified osteoarthritis, unspecified site; Z95.0 Presence of cardiac pacemaker; I87.8 Other specified disorders of veins; B95.5 Unspecified streptococcus as the cause of diseases classified elsewhere; M10.9 Gout, unspecified; B96.5 Pseudomonas (aeruginosa) (mallei) (pseudomallei) as the cause of diseases classified elsewhere; B95.2 Enterococcus as the cause of diseases classified elsewhere; B96.89 Other specified bacterial agents as the cause of diseases classified elsewhere; I70.293 Other atherosclerosis of native arteries of extremities, bilateral legs; N18.3 Chronic kidney disease, stage 3 (moderate); J44.9 Chronic obstructive pulmonary disease, unspecified; K59.00 Constipation, unspecified; I27.2 Other secondary pulmonary hypertension
CPT/HCPCS: 36415; 71010; 73560-RT; 73610-RT; 73630-RT; 73700-RT; 80048; 80053; 80069; 81001; 82570; 82607; 82746; 83036; 83735; 84145; 84155; 84156; 84165; 84484; 84540; 84550; 85025; 85027; 87040; 87070; 87077; 87186; 87205; 93005; 93925; 93970; 97116-GP; 97162-GP; A9270-GY; J0690; J0692

== ENCOUNTER 2016-12-14 10:02 | Inpatient (IN) | payer OTHER ==
--- NOTE | ~2016-12-14 | OP ---
Record Of Operation [facility] [address] [place] [address] NAME: ALLA ESPARZA : 42 STATUS : ADM IN PAT#: [id number] AGE: 76 ADM/REG DATE : 12/14/16 MR#: [id number] REPORT SERV DATE: 12/17/16 DICTATED BY: KAYDEN JONES DATE: 12/17/16 REPORT STATUS : Draft TRANSCRIBED BY: MODL DATE: 12/17/16 DATE OF PROCEDURE: 12/17/2016 PULMONARY CRITICAL CARE PROCEDURE NOTE PROCEDURE: Insertion of a left femoral arterial line for hemodynamic monitoring and frequent blood sampling. During code blue efforts, the left groin was prepped and draped in the usual sterile fashion and a left femoral arterial line was inserted under direct ultrasound visualization in the longitudinal view using Seldinger technique and secured to the skin with suture material. There was satisfactory waveform on the monitor after being connected to the transducer and sterile Bioclusive dressing was applied. Please see separate dictations for additional details of the morning's events. JEANETTE/SERGE Kayden Jones MD / [id number] CC: Sydney Bragg M.D.
--- NOTE | ~2016-12-14 | CN ---
Consultation Report [facility] [address] [place]. [address] NAME: ALLA WEINBERG : 44 STATUS : ADM IN PAT#: [id number] AGE: 76 ADM/REG DATE : 12/14/16 MR#: [id number] REPORT SERV DATE: 12/17/16 DICTATED BY: SUSANNA JONES DATE: 12/17/16 REPORT STATUS : Draft TRANSCRIBED BY: MODL DATE: 12/17/16 PULMONARY CRITICAL CARE DOCUMENTATION AND CODE BLUE DOCUMENTATION DATE OF CONSULTATION: Code Blue was called on the patient, Alla Weinberg, on 12/17/2016, time 0908 hours, CCU bed 10. HISTORY OF PRESENT ILLNESS: Mr. Weinberg is a 76-year-old gentleman, who is admitted to Dr. Oquendo's Service. He has underlying ischemic cardiomyopathy and was being worked up for ventricular arrhythmias and possible bowel obstruction. He had a large volume aspiration event and Code Blue was fired. At 0908 hours, the patient was noted to be unresponsive and pulseless. He had a paced rhythm consistent with pulseless electrical activity, chest compressions and Ambu bagging were initiated. An epinephrine was administered 1 ampule at 0909 hours and forced pulse check done shortly thereafter. He was consistently pulseless with a paced rhythm on the monitor and he was resumed on ACLS protocol, calcium was given, and the patient was intubated. Please see separate procedure note. On subsequent pulse check, shortly thereafter, he remained pulseless and he underwent another round of ACLS including additional epinephrine on pulse check at 0918 hours. He was noted to have a faint pulse and a blood pressure cycled at 160/67 with a pulse of 64 on the monitor. He received a total of 4 amps of epinephrine, 2 amps of bicarbonate, and 1 amp of calcium chloride during his code event. Femoral arterial and venous lines were placed as well as an OG tube which had bright red blood emanating from it. He received a bolus of saline a total of approximately 1 L throughout his code. His initial ABG showed a pH of 7.07, 76, 82, 22, and 90% oxygen. His H and H were stable at 12.2 and 36, which were slightly up from his morning CBC, and he was placed on mechanical ventilation as well as Levophed and epinephrine infusions. Please see my separate dictation documenting critical care provided to Mr. Weinberg following code event throughout the day as well as separate procedure notes. JEANETTE/SERGE Susanna Jones MD / [id number] CC: Sydney Bragg M.D.
--- NOTE | ~2016-12-14 | DS ---
Discharge Summary [facility] [address] [place]. [address] NAME: ALLA ESPARZA : 44 STATUS : DIS IN PAT#: [id number] AGE: 76 ADM/REG DATE : 12/14/16 MR#: [id number] REPORT SERV DATE: 12/26/16 DICTATED BY: JOSE OQUENDO DATE: 12/25/16 REPORT STATUS : Draft TRANSCRIBED BY: SERGE DATE: 12/25/16 Data Collection from hospitalization DISCHARGE DIAGNOSES: 1. Pulseless electrical activity arrest. 2. AICD. 3. Coronary artery disease status post coronary artery bypass grafting. 4. Ischemic cardiomyopathy. 5. Chronic systolic heart failure. 6. History of hypercholesterolemia. 7. Manic-depressive disorder. 8. Former smoker. 9. Vitamin D deficiency. 10.Osteoarthritis. 11.Gastroesophageal reflux disease. 12.Stage 3 chronic kidney disease. 13.Remote history of myocardial infarction. CONSULTATIONS: Dr. Susanna Acharya and Dr. Ez Alejandra Jr. PROCEDURES PERFORMED: 1. Intubation, 12/17/2016. 2. Insertion of left femoral arterial line, 12/17/2016. 3. Insertion of left femoral triple-lumen catheter, 12/17/2016. 4. Renal ultrasound, 12/17/2016. DISPOSITION: [facility]. HOSPITAL COURSE: This is a 76-year-old man, who presented to the emergency room with syncope. He has a long history of ischemic cardiomyopathy and coronary artery disease. On the day prior to this admission, he was at a restaurant when he became dizzy and almost fainted. He sat for a while with the underwriting operations manager and was then escorted out to his car and drove home. That evening, he again had a syncopal episode and was very weak and dizzy. He crawled to his bed and called an ambulance. When they came, he declined to go with them and waited for the next day and then came to the emergency room. He was now admitted to the hospital for further evaluation and treatment. Upon admission, the patient had presented with ventricular tachycardia. It was felt that he would need to undergo an interrogation of his AICD for better understanding of the rhythm abnormality. We were going to maintain the electrolytes, O2 saturation, and followup his EKG. We would continue to follow for possible symptomatic ventricular tachycardia. The following day, he was seen by Dr. Ez Alejandra Jr, regarding elpkm-nm-merypyy renal failure. The patient was felt to have acute kidney injury with serum creatinine higher than at the time of dismissal in September. He has stage III chronic kidney disease of undetermined significance. He also has a history of ischemic cardiomyopathy secondary to coronary artery disease with an ejection fraction reported less than 30%. He appears to be on the same furosemide, lisinopril, and spironolactone regimen that he had been on prior to his September 2016 hospitalization. He appeared to be more edematous than at the time of his hospital Discharge Summary [place] [id number] [facility] [place]. [address] NAME: ALLA ESPARZA : 42 STATUS : DIS IN PAT#: [id number] AGE: 76 ADM/REG DATE : 12/14/16 MR#: [id number] REPORT SERV DATE: 12/26/16 DICTATED BY: JOSE OQUENDO DATE: 12/25/16 REPORT STATUS : Draft TRANSCRIBED BY: SERGE DATE: 12/25/16 dismissal in the middle of September. Loop diuretics were ordered and he agreed. He was mildly hyperkalemia. He did not think the patient would need any immediate replacement. Aldactone was currently being started the following day. He would also be started on three times a week metolazone. Prinivil was continued and we would assess his cardiovascular response and consider the etiology of AICD discharge. Atorvastatin was continued. Beta-michael and amiodarone were continued. On 12/16/2016, he was alert and cooperative. Creatinine was 3.95. Medical therapy continued. He had poor urine output. Potassium level was 5.1. On 12/17/2016, the patient was seen by Dr. Susanna Acharya. The patient had developed acute hypoxemic respiratory failure and was status post a large volume aspiration event and Code Blue. Earlier that morning, he had developed copious vomiting of coffee-ground material as well as some bright red blood. He had large volume aspiration event and cardiac arrest. ACLS protocol was performed. He was intubated for invasive mechanical ventilation, and central and arterial lines were placed. Post extubation, x-ray revealed large volume aspiration event with opacification of both lung davis, likely superimposed on some degree of volume overload. Over the course of the day, he became markedly hypotensive, presumably secondary to septic shock from inflammatory response due to aspiration pneumonitis. Vasopressors were being titrated; however, he continued to deteriorate. He had minimal urine output since the code event that morning. We were going to continue mechanical ventilation as well as titration of norepinephrine, epinephrine, and vasopressin to maintain MAP goals. We would discuss the potential of initiation of continuous renal replacement therapy. The patient's previous wishes did not include dialysis. If his family chooses to proceed with transition toward more comfort focused care, we would be happy to assist with transition to palliative care as well. A renal ultrasound had been performed. His condition continued to decline. The patient's family was adamant that the patient would not be interested in dialysis of any form. They requested comfort care and DNR code status. Pressors and ventilator support were weaned. The patient's condition continued to decline and later that afternoon, he was found without blood pressure, pulse, or respirations. He was pronounced at 1615 hours and released to the above-mentioned home. Information collected by: Sylwia Crowley I submit the above information as my discharge summary. TG/MODL Jose Oquendo M.D. / [id number] CC: Sydney Bragg M.D. Donald Franklin Jr, M.D.
--- NOTE | ~2016-12-14 | OP ---
Record Of Operation [facility] [address] [place]. [address] NAME: ALLA WEINBERG : 42 STATUS : ADM IN PAT#: [id number] AGE: 76 ADM/REG DATE : 12/14/16 MR#: [id number] REPORT SERV DATE: 12/17/16 DICTATED BY: KAYDEN JONES DATE: 12/17/16 REPORT STATUS : Draft TRANSCRIBED BY: MODL DATE: 12/17/16 DATE OF PROCEDURE: 12/17/2016 PULMONARY CRITICAL CARE MEDICINE INTUBATION PROCEDURE NOTE REASON FOR INTUBATION: Code blue, large volume aspiration event. DESCRIPTION OF PROCEDURE: During code blue efforts, Mr. Weinberg was positioned in the usual fashion and a #3 GlideScope was advanced into his mouth which was filled with blood and coffee-grounds emesis. An anchor was used to suction as much of the debris away as possible and a #8 ET tube was advanced into his trachea through the vocal cords under direct visualization and secured to the teeth at approximately 21 cm. He had positive breath sounds bilaterally following intubation which were coarse, positive color change on CO2 detector, air condensation in the ET tube with bagging, and absent breath sounds over the fundus of the stomach. An OG tube was inserted initially through the mouth which was unsuccessful and subsequently through the nose which was successful with positive gas insufflation audible over the fundus of the stomach. A followup chest x-ray showed NG tube tip in the tip of the GE junction and it was advanced approximately 15 cm and the ET tube tip approximately 6 cm above the michael, it was advanced 3 cm. Please see separate dictations for additional details. JEANETTE/SERGE Kayden Jones MD / [id number] CC: Jose Oquendo M.D. Alla Pichardo M.D.
--- NOTE | ~2016-12-14 | CN ---
Consultation Report [facility] [address] [place]. [address] NAME: ALLA ESPARZA : 44 STATUS : ADM IN PAT#: [id number] AGE: 76 ADM/REG DATE : 12/14/16 MR#: [id number] REPORT SERV DATE: 12/15/16 DICTATED BY: SYLVAIN LLANES JR DATE: 12/15/16 REPORT STATUS : Draft TRANSCRIBED BY: MODL DATE: 12/15/16 NEPHROLOGY CONSULTATION DATE OF CONSULTATION: 12/15/2016 REASON FOR CONSULTATION: Kxija-jo-jpcfftn renal failure. IMPRESSION: 1. Acute kidney injury, serum creatinine higher than at the time of dismissal in September. 2. Chronic kidney disease stage 3 of undetermined significance/precipitant. 3. Ischemic cardiomyopathy secondary to coronary artery disease, ejection fraction reported less than 30%. 4. ASCVD, coronary artery bypass grafting, seven vessels in 2003. 5. Cardiac dysrhythmias, AICD, with AICD discharge prior to admission. 6. Several episodes of near syncope prior to admission. 7. No exam features suggestive of volume depletion. 8. History of osteoarthritis, not on anti-inflammatory agents. 9. Vitamin D deficiency. 10.Gastroesophageal reflux disease. 11.Allergic rhinitis. 12.Recent episode of lower extremity cellulitis. RECOMMENDATIONS: He appears to be on the same furosemide, lisinopril, and spironolactone, regimen that he was on prior to his 09/2016 hospitalization. He appears to be more edematous than it is presumed he was at time of hospital dismissal in the middle of September. Dr. Oquendo has ordered loop diuretics, I concur. He is mildly hyperkalemic, I do not think he will need any immediate replacement. His Aldactone is currently being started on tomorrow, and he is ordered three time a week metolazone, though I do not see that on his home medications. Continue Prinivil, assess his cardiovascular response, and consider etiology of AICD discharge per Cardiology. Thank you for the consult. HISTORY: A gentleman with chronic kidney disease that is probably aggravated from his ischemic cardiomyopathy. However, he has been compensated and works at [employer] until recently. He has lower extremity edema that has not responded to current loop diuretics. He has had a couple of episodes of syncope or near syncope over the 48 hours prior to admission and apparently has some trouble with the AICD discharging in the days prior to admission. He has no chest pain or subjective palpitations, does not acknowledge orthopnea. He has been started on parental amiodarone in the hospital, he seems to be experiencing some nausea with dry heaves here in the hospital. He has no cough prior to admission, no hemoptysis. He does not acknowledge orthopnea, or PND, but he agrees that he has lower extremity edema. He has had no chest pain. Consultation Report [place] [id number] [place]. [address] NAME: ALLA ESPARZA : 42 STATUS : ADM IN [facility]#: [id number] AGE: 76 ADM/REG DATE : 12/14/16 MR#: [id number] REPORT SERV DATE: 12/15/16 DICTATED BY: SYLVAIN LLANES JR. DATE: 12/15/16 REPORT STATUS : Draft TRANSCRIBED BY: SERGE DATE: 12/15/16 OTHER PAST MEDICAL HISTORY: 1. ASCVD. 2. Ischemic cardiomyopathy. 3. Remote myocardial infarction. 4. Pacemaker. 5. AICD. 6. Questionable history of COPD. 7. Remote tobacco habituation. 8. History of no diabetes. SOCIAL HISTORY: and three children, but he lives by himself. Remote history of smoking. No alcohol. No recreational drug use. FAMILY HISTORY: Mother, congestive heart failure and other cardiovascular problems. Father with cardiovascular disease and alcohol use. ALLERGIES: NO KNOWN DRUG ALLERGIES. HOME MEDICATIONS: Identified as atorvastatin, B complex, carvedilol, cholecalciferol, diphenhydramine, docusate, famotidine, fexofenadine, furosemide, glucosamine, lisinopril, metolazone, multivitamins, omega-3 fatty acids, senna, spironolactone, tramadol p.r.n., zolpidem at bedtime for sleep. REVIEW OF SYSTEMS: Not otherwise reportable for head, neck, pulmonary, cardiac, GI, , musculoskeletal, neurological, integumentary, or psychiatric complaints. PHYSICAL EXAMINATION: GENERAL: Overweight white male, who is awake, alert, fluent, at a routed conversations. HEENT: Cranium is normocephalic. Pupils are equal. No scleral icterus. No conjunctival injection. Pupils are equal. Nose without discharge, no epistaxis. Oral mucous membranes are moist. Facial symmetry is observed. NECK: No neck vein distention. LUNGS: Clear to auscultation without increased work of breathing, adventitial sounds are not appreciated. HEART: PMI is laterally displaced. I do not hear a gallop or rub. Rhythm is currently irregular to auscultation, pacer spikes are noted. ABDOMEN: Obese, soft, nontender, without palpable visceromegaly. Liver edge is not distended. HJR is not observed. GENITALIA: Deferred. He does not have a Martinez. EXTREMITIES: With 1+ pitting edema, symmetrical distal pulses 1+. No nail bed cyanosis. NEUROLOGICAL: Cognition and speech are normal. Gait is not currently tested. Moves all extremities. DTRs are symmetrical, biceps and knee jerk. Speech is fluent. Cognition is good. INTEGUMENT: No observed or reported lesions. No petechiae, no rash. Turgor is good. Consultation Report [address] [place]. [address] NAME: ALLA ESPARZA : 44 STATUS : ADM IN [facility]#: [id number] AGE: 76 ADM/REG DATE : 12/14/16 MR#: [id number] REPORT SERV DATE: 12/15/16 DICTATED BY: SYLVAIN LLANES JR. DATE: 12/15/16 REPORT STATUS : Draft TRANSCRIBED BY: SERGE DATE: 12/15/16 Cyanosis is absent. PSYCHIATRIC: Affect is somewhat pressured. Interaction, cooperates well with examiner, however. LABORATORY DATA: When he entered the hospital on 09/24/2016 creatinine was 2.5, at discharge creatinine was 1.7, on admission 10/14/2016 the creatinine was 3.3, today 3.6. Potassium is 5, sodium is 132, calcium is 8.6, magnesium is 2.3. Bicarbonate around 24. Anion gap around 10 to 12. Transaminases not elevated. Troponin slightly elevated. TSH not recently done. UA without protein or hematuria. Chest x-ray, cardiomegaly, no gross pulmonary vascular congestion. Thank you, group members will follow with you. RINA/SERGE Sylvain Llanes Jr, M.D. / [id number] CC: Sydney Bragg M.D.
--- NOTE | ~2016-12-14 | CN ---
Consultation Report [facility] [address] [place]. [address] NAME: ALLA WEINBERG : 44 STATUS : ADM IN PAT#: [id number] AGE: 76 ADM/REG DATE : 12/14/16 MR#: [id number] REPORT SERV DATE: 12/17/16 DICTATED BY: SUSANNA JONES DATE: 12/17/16 REPORT STATUS : Draft TRANSCRIBED BY: MODL DATE: 12/17/16 PULMONARY CRITICAL CARE CONSULTATION DATE OF CONSULTATION: 12/17/2016 REASON FOR CONSULTATION: Acute hypoxemic respiratory failure, status post large volume aspiration event, and code blue. HISTORY OF PRESENT ILLNESS: Mr. Weinberg is a 76-year-old gentleman who is admitted to Dr. Oquendo's service for ischemic cardiomyopathy and ventricular tachycardia. He presented to the emergency department on 12/14/2016 after becoming dizzy at a restaurant and having near syncope. He was brought to the emergency department and found to be in ventricular arrhythmia. It sounds like he actually had a similar episode the previous day and called paramedics, however, declined to be transported to the hospital. He is admitted to the CCU, bed 10, and was also evaluated by Dr. Alejandra from Nephrology for acute kidney injury superimposed on to some degree of chronic kidney disease and was having some nausea and coffee-ground material from the NG tube, which was placed for suspected ileus. This morning he developed copious vomiting of coffee-ground material as well as some bright red blood, had large volume aspiration event, and had cardiac arrest. He underwent ACLS, please see my separate dictation note for details. He was intubated for invasive mechanical ventilation and central and arterial lines were placed. Please see my separate dictations of those procedures. His post intubation x-ray showed a large volume aspiration event with opacification of both lung davis likely superimposed on to some degree of volume overload. Over the course of the day, he has become markedly hypotensive presumably secondary to septic shock from inflammatory response due to aspiration pneumonitis. Vasopressors are being titrated, however, he continues to deteriorate. Of note, he has had minimal urine output since his code event this morning. PAST MEDICAL HISTORY: Includes ASCVD; ischemic cardiomyopathy; coronary artery disease with remote [place], status post pacemaker AICD placement; questionable history of COPD; remote tobacco abuse; vitamin D deficiency; osteoarthritis; GERD; allergic rhinitis; and recurrent lower extremity cellulitis. OTHER SURGICAL HISTORY: Includes AICD placement. SOCIAL HISTORY: He is living independently, has a and three children, who live elsewhere. Remote smoking. Denies alcohol or illicit drug use to previous examiners based on medical records. FAMILY HISTORY: Mother had coronary artery disease with ischemic cardiomyopathy/CHF. Father had coronary artery disease, as well as alcoholism. ALLERGIES: NONE KNOWN. Consultation Report [address] [place]. [address] NAME: ALLA WEINBERG : 42 STATUS : ADM IN PAT#: [id number] AGE: 76 ADM/REG DATE : 12/14/16 MR#: [id number] REPORT SERV DATE: 12/17/16 DICTATED BY: SUSANNA JONES DATE: 12/17/16 REPORT STATUS : Draft TRANSCRIBED BY: SERGE DATE: 12/17/16 HOME MEDICATIONS: Include atorvastatin, B vitamin Complex, Coreg, cholecalciferol, Benadryl, docusate, famotidine, fexofenadine, furosemide, glucosamine, lisinopril, metolazone, multivitamins, omega-3 fatty acid, senna, spironolactone, tramadol on an as needed basis, and Ambien for insomnia. REVIEW OF SYSTEMS: Limited secondary to acuity, see HPI. ADVANCE DIRECTIVES/LIVING SHAH: None. His children are serving as his medical decision maker as well as a sister. PHYSICAL EXAMINATION: GENERAL: He is tachycardic, hypotensive on multiple pressors. Not over breathing the ventilator and afebrile. He is a male, who is overweight, intubated, and sedated. HEENT: Head is atraumatic and normocephalic. Pupils are sluggishly reactive to light. Extraocular movements unable to assess due to acuity. Ears, nose, and mouth are unremarkable. His oral endotracheal tube and orogastric tube in place with some bright red blood about the mouth. NECK: Supple with redundant soft tissue. CHEST: With coarse breath sounds bilaterally, which are symmetric. HEART: S1, S2. Irregularly irregular with pacer spikes noted on the telemetry strip. He has a healed incision from previous AICD insertion. ABDOMEN: Obese, somewhat distended with some tympany to percussion over the area of the stomach. : Martinez catheter is indwelling and draining a very dark urine approximately 50 mL at 7 a.m. EXTREMITIES: No clubbing or cyanosis, but trace pitting edema. NEUROLOGIC: Exam is very limited due to intubation and sedation. He does respond to painful stimulus. PSYCHIATRIC: Unable to assess. LABORATORY AND DIAGNOSTIC STUDIES: Personal review of diagnostic workup completed today includes renal function panel, sodium 127, potassium 5.2, chloride is 94, CO2 is 26, BUN is 84, creatinine 4.85, glucose 138, calcium 8.2, phosphorus 6.8, albumin 3.3. BNP level is 833.7. CBC shows leukocytosis 16.2 with hemoglobin and hematocrit of 11.0 and 32.9 with some macrocytosis and mild hypochromia, RDW is mildly elevated at 15.9, platelet count is 109. PTT is greater than 150 on a heparin drip. An ABG post code showed pH 7.07, PaCO2 of 68, PaO2 of 117, base excess -11.4, bicarb of 19.9 (calculated value), and a O2 saturation 96% on 100% FiO2. Chest x-ray shows diffuse bilateral interstitial opacities with high- riding endotracheal tube and orogastric tube, which terminates at the distal esophagus/GE junction. His last echocardiogram was performed in 03/2016 and shows severely decreased LV systolic function with a calculated EF around 26% with dilated left-sided structures, moderate TR, RV, end-systolic pressure consistent with moderate pulmonary hypertension, aortic sclerosis without stenosis, and a dilated right atrium. Consultation Report [address] [place]. [address] NAME: ALLA WEINBERG : 44 STATUS : ADM IN [facility]#: [id number] AGE: 76 ADM/REG DATE : 12/14/16 MR#: [id number] REPORT SERV DATE: 12/17/16 DICTATED BY: SUSANNA JONES DATE: 12/17/16 REPORT STATUS : Draft TRANSCRIBED BY: MODGera DATE: 12/17/16 IMPRESSION: 1. Acute hypoxemic respiratory failure in the setting of large volume aspiration event, status post code blue event this morning. 2. Severe ischemic cardiomyopathy, status post pacer AICD insertion with ventricular arrhythmia precipitating hospitalization. 3. Acute kidney injury superimposed on to chronic kidney disease, stage 3, now oliguric with hyperphosphatemia and mild hyperkalemia. 4. Large volume aspiration event, as described above. 5. Suspected ileus versus small-bowel obstruction with abdominal distention. 6. Septic shock likely with cardiogenic shock component as well. 7. Profound metabolic acidosis. 8. Additional past medical history as described above. PLAN: We will continue mechanical ventilation as well as titration of norepinephrine, epinephrine, and vasopressin to maintain MAP goals. Will discuss potential initiation of continuous renal replacement therapy with Dr. Smith as well as patient's family, who evidently are aware of the patient's previous wishes, which did not include dialysis. If they choose to proceed with transition toward a more comfort focused care, we will be happy to assist with transition to palliative care as well. I did discuss this case with Dr. Oquendo from Cardiology as well as Dr. Smith from Nephrology as well as the patient's bedside nurse Shanae Cox and the patient's son and sister who are at the bedside. Approximately 61 minutes of critical care time was expended throughout the day on Mr. Weinberg's care. Please see my additional dictations for code blue documentation, intubation note, left femoral central line insertion note, and left femoral arterial line insertion note Thank you for the consultation. JEANETTE/SERGE Susanna Jones MD / [id number] CC: Jose Oquendo M.D. Alla Pichardo M.D.
--- NOTE | ~2016-12-14 | HP ---
History And Physical [id number] [place]. [address] NAME: ALLA WEINBERG : 44 STATUS : ADM IN [facility]#: [id number] AGE: 76 ADM/REG DATE : 12/14/16 MR#: [id number] REPORT SERV DATE: 12/14/16 DICTATED BY: JOSE OQUENDO DATE: 12/14/16 REPORT STATUS : Draft TRANSCRIBED BY: SEREG DATE: 12/14/16 DATE OF ADMISSION: 12/14/2016 REASON FOR ADMISSION: Mr. Alla Weinberg enters through the emergency room with syncope. CVD PHYSICIAN: Syed Solis M.D. HISTORY OF PRESENT ILLNESS: Mr. Alla Weinberg has long history of ischemic cardiomyopathy and coronary artery disease. Yesterday, he was at restaurant when he became dizzy and almost fainted. He sat for a while with the school business manager and then was escorted out to his car and drove home. That evening, he again had another syncopal episode and was very weak, dizzy. He crawled to his bed and called the ambulance. When they came, he declined to go with them and waited for the next day and came to the emergency room and is now admitted. REVIEW OF SYSTEMS: It is difficult to have him focused. I do not get any history of chest pain or chest discomfort. No discharges from the AICD are suggested. No fever or chills. Rest is undetermined. PAST MEDICAL HISTORY: 1. Status post coronary bypass grafting, 04/23. 2. Chronic systolic heart failure with ejection fraction of 25% on echocardiogram, 10/01. 3. History of hypercholesterolemia, on high-dose atorvastatin. 4. Status post AICD placement by Dr. Abrams. 5. Manic-depressive illness. SOCIAL HISTORY: He is a former smoker. He is moderately active. FAMILY HISTORY: Positive for heart disease in both mother and father. PHYSICAL EXAMINATION: VITAL SIGNS: Blood pressure is 110/70, pulse is 86. GENERAL: Currently, he is quite active and quite talkative. He is in no distress. RESPIRATORY: The lung expands symmetrically. No rales or wheezes are heard. CARDIAC: Precordium is quiet. S1 and S2 are normal. No rub is heard. ABDOMEN: Soft with positive bowel sounds. EXTREMITIES: Demonstrate no clubbing, cyanosis, or edema. There is noted to be some induration there. No increased temperature is noted. LABORATORY EVALUATION: Currently pending. ASSESSMENT: At this time, presents with ventricular tachycardia. We will ask for interrogation of the AICD for better understanding of the rhythm abnormality. I am maintaining electrolytes, O2 sat and follow up EKG. We will continue to follow for possible symptomatic ventricular tachycardia. History And Physical [address] [address] NAME: ALLA WEINBERG : 44 STATUS : ADM IN PAT#: [id number] AGE: 76 ADM/REG DATE : 12/14/16 MR#: [id number] REPORT SERV DATE: 12/14/16 DICTATED BY: JOSE OQUENDO DATE: 12/14/16 REPORT STATUS : Draft TRANSCRIBED BY: SERGE DATE: 12/14/16 ROSIBEL/SERGE Jose Oquendo M.D. / [id number] CC: Sydney Bragg M.D.
--- NOTE | ~2016-12-14 | OP ---
Record Of Operation [facility] [address] [place]. [address] NAME: ALLA WEINBERG : 44 STATUS : ADM IN PAT#: [id number] AGE: 76 ADM/REG DATE : 12/14/16 MR#: [id number] REPORT SERV DATE: 12/17/16 DICTATED BY: KAYDEN JONES DATE: 12/17/16 REPORT STATUS : Draft TRANSCRIBED BY: MODL DATE: 12/17/16 DATE OF PROCEDURE: PULMONARY CRITICAL CARE PROCEDURE NOTE PROCEDURE: Insertion of a left femoral triple-lumen catheter DESCRIPTION OF PROCEDURE: During code blue efforts Mr. Weinberg's left groin was prepped and draped in usual sterile fashion and a finder needle was advanced into the vein under direct ultrasound visualization, and the left femoral vein was cannulated using Seldinger technique with sequential dilation and passage of a 20 cm Arrow Blue triple-lumen catheter to a depth of approximately 19 cm and secured to the skin with suture material. There was positive blood return in all ports and they were flushed with sterile saline. Sterile Bioclusive dressing was applied following the procedure. Maximal sterile barriers including cap, gown, gloves, face shield, and drape were used. ESTIMATED BLOOD LOSS: Less than 1 mL. IMMEDIATE COMPLICATIONS: None. JEANETTE/SERGE Kayden Jones MD / [id number] CC: Sydney Bragg M.D.
[2016-12-14 08:03] LABS: BASOPHILS 0.3 %; BASOPHILS ABSOLUTE 0.03 10/3/uL (0.0-0.16); EOSINOPHILS 0.3 %; EOSINOPHILS ABSOLUTE 0.03 10/3/uL (0.0-0.53); HEMATOCRIT 32.6 % (40.0-51.0); HEMOGLOBIN 10.7 g/dL (13.6-17.8); IMMATURE GRANULOCYTES 0.2 %; IMMATURE GRANULOCYTES ABSOLUTE 0.02 10/3/uL (0.0-0.11); LYMPHOCYTES 11.1 %; LYMPHOCYTES ABSOLUTE 0.99 10/3/uL (0.67-4.30); MEAN CORPUS HGB CONC 32.8 g/dL (32.0-36.0); MEAN CORPUSCULAR HEMOGLOB 33.1 pg (26.0-34.0); MEAN CORPUSCULAR VOLUME 100.9 fL (80-100); MEAN PLATELET VOLUME 13.9 fL (9.2-13.0); MONOCYTES 9.9 %; MONOCYTES ABSOLUTE 0.88 10/3/uL (0.21-1.20); NEUTROPHILS 78.2 %; NEUTROPHILS ABSOLUTE 6.95 10/3/uL (2.02-8.40); RED CELL COUNT 3.23 10/6/uL (4.7-6.1); WHITE BLOOD CELLS 8.9 10/3/uL (4.5-10.5)
[2016-12-14 08:05] LABS: MANUAL DIFF NO %; PLATELET COUNT 95 10/3/uL (150-400); RBC DISTRIBUTION WIDTH 15.8 % (12.0-16.0)
[2016-12-14 08:24] LABS: A/G RATIO 1.3 (0.7-1.9); ALBUMIN 3.6 G/DL (3.5-5.0); ALKALINE PHOSPHATASE 119 U/L (45-117); BUN (BLOOD UREA NITROGEN) 59 MG/DL (6-23); CALCIUM, SERUM 8.6 MG/DL (8.5-10.4); CHLORIDE, SERUM 102 MMOL/L (96-112); CO2 (CARBON DIOXIDE) 24 MMOL/L (24-34); GLOBULIN 2.8 G/DL (2.5-4.1); SGOT(AST) 36 U/L (5-40); SGPT(ALT) 25 U/L (5-65); SODIUM, SERUM 135 MMOL/L (135-148); TOTAL PROTEIN 6.4 G/DL (6.0-8.5)
[2016-12-14 08:25] LABS: INTERNATIONAL NORMAL RATI 1.6 UNITS (-)
[2016-12-14 08:29] LABS: PROTIME (NOT ORD) 19.2 SEC (12.0-14.5)
[2016-12-14 08:34] LABS: CREATININE 3.32 MG/DL (0.70-1.30); GFR AFRICAN AMERICAN 20 ML/MIN (>=60); GFR NON AFRICAN AMERICAN 17 ML/MIN (>=60); GLUCOSE, SERUM 139 MG/DL (60-99); TOTAL BILIRUBIN 1.8 MG/DL (0-1.2)
[2016-12-14 08:35] LABS: TROPONIN I 3.52 NG/ML (<0.05)
[~2016-12-14 10:02] MED LIST changes: +ALLEGRA180 PO; +AMB10 PO; +BEN25 PO; +CIP5 PO; +COREG25 PO; +DSS PO; +FLORASTOR250 MG PO; +L20 PO; +LIPITOR40 PO; +OSTEO BI-FLEX1 EACH PO; +SUPER B COMP PO; +THERGRANM PO; +ULTRACET PO; +VITAMIN D31000 UNIT PO; +ZAROX2.5B PO
[2016-12-14 22:12] LABS: PHOSPHORUS, SERUM 4.7 MG/DL (2.5-4.5)
[2016-12-15 04:01] LABS: BASOPHILS 0.3 %; BASOPHILS ABSOLUTE 0.03 10/3/uL (0.0-0.16); EOSINOPHILS 0.2 %; EOSINOPHILS ABSOLUTE 0.02 10/3/uL (0.0-0.53); HEMATOCRIT 33.8 % (40.0-51.0); HEMOGLOBIN 11.2 g/dL (13.6-17.8); IMMATURE GRANULOCYTES 0.6 %; IMMATURE GRANULOCYTES ABSOLUTE 0.06 10/3/uL (0.0-0.11); LYMPHOCYTES 9.1 %; LYMPHOCYTES ABSOLUTE 0.98 10/3/uL (0.67-4.30); MEAN CORPUS HGB CONC 33.1 g/dL (32.0-36.0); MEAN CORPUSCULAR VOLUME 102.7 fL (80-100); MEAN PLATELET VOLUME 14.1 fL (9.2-13.0); MONOCYTES 9.3 %; NEUTROPHILS 80.5 %; NEUTROPHILS ABSOLUTE 8.65 10/3/uL (2.02-8.40); NUCLEATED RED BLOOD CELLS 0.6 /100WBC (0-0); PLATELET COUNT 99 10/3/uL (150-400); RED CELL COUNT 3.29 10/6/uL (4.7-6.1); WHITE BLOOD CELLS 10.7 10/3/uL (4.5-10.5)
[2016-12-15 04:06] LABS: MANUAL DIFF NO %
[2016-12-15 04:17] LABS: INTERNATIONAL NORMAL RATI 1.8 UNITS (-); PROTIME (NOT ORD) 20.3 SEC (12.0-14.5)
[2016-12-15 04:31] LABS: CALCIUM, SERUM 8.6 MG/DL (8.5-10.4); CHLORIDE, SERUM 98 MMOL/L (96-112); CHOL/HDL RATIO(NOT ORDER) 2.9 (0-5); CHOLESTEROL 83 MG/DL (< 200); CO2 (CARBON DIOXIDE) 23 MMOL/L (24-34); CREATININE 3.67 MG/DL (0.70-1.30); GFR AFRICAN AMERICAN 18 ML/MIN (>=60); GFR NON AFRICAN AMERICAN 15 ML/MIN (>=60); GLUCOSE, SERUM 153 MG/DL (60-99); HDL CHOLESTEROL 29 MG/DL (> 39); LDL CHOLESTEROL 41 MG/DL (< 130); NON-HDL CHOLESTEROL 54 MG/DL (< 160); POTASSIUM, SERUM 5.4 MMOL/L (3.5-5.3); SGPT(ALT) 30 U/L (5-65); SODIUM, SERUM 132 MMOL/L (135-148)
[2016-12-15 04:32] LABS: BUN (BLOOD UREA NITROGEN) 69 MG/DL (6-23); TRIGLYCERIDE 69 MG/DL (< 150)
[2016-12-15 05:52] LABS: PLATELET ESTIMATE SLT DEC (ADEQUATE)
[2016-12-15 05:53] LABS: RBC MORPHOLOGY NORM (NORMAL)
[2016-12-16 01:27] LABS: CALCIUM, SERUM 8.5 MG/DL (8.5-10.4); CHLORIDE, SERUM 96 MMOL/L (96-112); CO2 (CARBON DIOXIDE) 24 MMOL/L (24-34); CREATININE 3.95 MG/DL (0.70-1.30); GFR AFRICAN AMERICAN 16 ML/MIN (>=60); GFR NON AFRICAN AMERICAN 14 ML/MIN (>=60); POTASSIUM, SERUM 5.1 MMOL/L (3.5-5.3); SODIUM, SERUM 132 MMOL/L (135-148)
[2016-12-16 01:30] LABS: GLUCOSE, SERUM 110 MG/DL (60-99); TROPONIN I 1.33 NG/ML (<0.05)
[2016-12-16 01:35] LABS: BUN (BLOOD UREA NITROGEN) 75 MG/DL (6-23)
[2016-12-17 01:50] LABS: ALBUMIN 3.3 G/DL (3.5-5.0); BUN (BLOOD UREA NITROGEN) 84 MG/DL (6-23); CALCIUM, SERUM 8.2 MG/DL (8.5-10.4); CHLORIDE, SERUM 94 MMOL/L (96-112); CO2 (CARBON DIOXIDE) 26 MMOL/L (24-34); CREATININE 4.85 MG/DL (0.70-1.30); GFR AFRICAN AMERICAN 13 ML/MIN (>=60); GFR NON AFRICAN AMERICAN 11 ML/MIN (>=60); GLUCOSE, SERUM 138 MG/DL (60-99); PHOSPHORUS, SERUM 6.8 MG/DL (2.5-4.5); POTASSIUM, SERUM 5.2 MMOL/L (3.5-5.3); SODIUM, SERUM 127 MMOL/L (135-148)
[2016-12-17 08:57] LABS: BASOPHILS 0.1 %; BASOPHILS ABSOLUTE 0.02 10/3/uL (0.0-0.16); EOSINOPHILS 0.1 %; EOSINOPHILS ABSOLUTE 0.01 10/3/uL (0.0-0.53); HEMATOCRIT 32.9 % (40.0-51.0); IMMATURE GRANULOCYTES 0.4 %; IMMATURE GRANULOCYTES ABSOLUTE 0.07 10/3/uL (0.0-0.11); LYMPHOCYTES 11.7 %; LYMPHOCYTES ABSOLUTE 1.89 10/3/uL (0.67-4.30); MEAN CORPUS HGB CONC 33.4 g/dL (32.0-36.0); MEAN CORPUSCULAR HEMOGLOB 34.1 pg (26.0-34.0); MEAN CORPUSCULAR VOLUME 101.9 fL (80-100); MEAN PLATELET VOLUME 13.5 fL (9.2-13.0); MONOCYTES 3.4 %; MONOCYTES ABSOLUTE 0.55 10/3/uL (0.21-1.20); NEUTROPHILS 84.3 %; NEUTROPHILS ABSOLUTE 13.62 10/3/uL (2.02-8.40); PLATELET COUNT 109 10/3/uL (150-400); RBC DISTRIBUTION WIDTH 15.9 % (12.0-16.0); RED CELL COUNT 3.23 10/6/uL (4.7-6.1)
[2016-12-17 08:58] LABS: MANUAL DIFF NO %; WHITE BLOOD CELLS 16.2 10/3/uL (4.5-10.5)
[2016-12-17 10:30] LABS: BE (BASE EXCESS) -11.4 MEQ/L (0 +/- 2.5); CARBOXYHEMOGLOBIN 0.5 % (0-3); HCO3 (ACTUAL BICARBONATE) 19.1 MEQ/L (23-27); HEMOBLOGIN CONTENT 11.4 G/DL (14-18); INSTRUMENT SERIAL # 35151; METHEMOGLOBIN 0.6 % (0-3); MODE CMV; O2 CONTENT 15.5 VOL% (18-24); OPERATOR ID 23189; PCO2 (CO2 TENSION) 68 MMHG (35-45); PO2 (O2 TENSION) 117 MMHG (79-93); SAMPLE Arterial; pH 7.07 (7.37-7.43)
[2016-12-17 12:08] LABS: BE (BASE EXCESS) -7.8 MEQ/L (0 +/- 2.5); CARBOXYHEMOGLOBIN 0.4 % (0-3); HCO3 (ACTUAL BICARBONATE) 19.6 MEQ/L (23-27); HEMOBLOGIN CONTENT 11.5 G/DL (14-18); INSTRUMENT SERIAL # 35151; METHEMOGLOBIN 0.6 % (0-3); MODE CMV; PCO2 (CO2 TENSION) 48 MMHG (35-45); PO2 (O2 TENSION) 145 MMHG (79-93); SAMPLE Arterial; TIDAL VOLUME 500 ML; pH 7.23 (7.37-7.43)
[2016-12-17 15:51] LABS: COMPLEMENT C4 19.9 MG/DL (16-47)
== END 2016-12-17 17:00 | disposition expired | DRG 308 ==
LOC: ER 10:02 → CCU 10:20
PROVIDERS: Emergency Medicine; Internal Medicine Cardiovascular Disease; Internal Medicine Nephrology
PROC: 5A1945Z Respiratory Ventilation, 24-96 Consecutive Hours (ICD-10-PCS; principal; 2016-12-17)
PROC: 0BH17EZ Insertion of Endotracheal Airway into Trachea, Via Natural or Artificial Opening (ICD-10-PCS; 2016-12-17)
PROC: 02HV33Z Insertion of Infusion Device into Superior Vena Cava, Percutaneous Approach (ICD-10-PCS; 2016-12-17)
PROC: B548ZZA Ultrasonography of Superior Vena Cava, Guidance (ICD-10-PCS; 2016-12-17)
DX: I47.2 Ventricular tachycardia (principal); J96.01 Acute respiratory failure with hypoxia; J69.0 Pneumonitis due to inhalation of food and vomit; A41.9 Sepsis, unspecified organism; N17.9 Acute kidney failure, unspecified; E87.2 Acidosis; R65.21 Severe sepsis with septic shock; R57.0 Cardiogenic shock; I50.23 Acute on chronic systolic (congestive) heart failure; D69.6 Thrombocytopenia, unspecified; L03.115 Cellulitis of right lower limb; K56.7 Ileus, unspecified; L03.116 Cellulitis of left lower limb; I46.9 Cardiac arrest, cause unspecified; I25.5 Ischemic cardiomyopathy; I25.10 Atherosclerotic heart disease of native coronary artery without angina pectoris; E78.00 Pure hypercholesterolemia, unspecified; N18.3 Chronic kidney disease, stage 3 (moderate); Z66 Do not resuscitate; E55.9 Vitamin D deficiency, unspecified; K21.9 Gastro-esophageal reflux disease without esophagitis; J30.9 Allergic rhinitis, unspecified; F31.9 Bipolar disorder, unspecified; F17.210 Nicotine dependence, cigarettes, uncomplicated; I36.1 Nonrheumatic tricuspid (valve) insufficiency; D50.9 Iron deficiency anemia, unspecified; I35.0 Nonrheumatic aortic (valve) stenosis; I27.2 Other secondary pulmonary hypertension; E83.39 Other disorders of phosphorus metabolism; I25.2 Old myocardial infarction; Z82.49 Family history of ischemic heart disease and other diseases of the circulatory system; Z87.891 Personal history of nicotine dependence; Z95.810 Presence of automatic (implantable) cardiac defibrillator; Z81.1 Family history of alcohol abuse and dependence; E87.70 Fluid overload, unspecified; E87.5 Hyperkalemia; Z95.1 Presence of aortocoronary bypass graft
CPT/HCPCS: 31720; 36600; 71010; 74000; 76775; 80048; 80053; 80061; 80069; 82550; 82805; 83735; 83880; 84100; 84132; 84460; 84484; 85025; 85610; 85730; 86160; 87070; 87205; 87641; 92950; 93005; 93288; 94002; 96365; 99291; A9270-GY; C1894; J0282; J1170; J2405; J3010